=== PATIENT | male | born 1990 | race Caucasian/White ===

== ENCOUNTER → 2021-03-01 | Outpatient (CLI) | LOC: M LABSMTC 08:17 | PROVIDERS: ATTEND Pediatrics | DX: Z20.822 Contact with and (suspected) exposure to COVID-19 (principal) ==

== ENCOUNTER 2024-01-22 14:33 | Emergency (ER) | payer OTHER ==
[~2024-01-22] VITALS: Ht 172.7 cm; Wt 74.5 kg
[2024-01-22 17:08] VITALS: BP 127/82; TEMP 97.4; O2SAT 100
== END 2024-01-22 17:11 | disposition home or self-care (01) ==
LOC: M ED 14:33
DX: T88.9XXA Complication of surgical and medical care, unspecified, initial encounter (principal)